=== PATIENT | female | born 1970 | race Caucasian/White ===

== ENCOUNTER 2017-10-16 16:44 | Emergency (ER) | payer BC ==
[2017-10-16] MEDS: HYDROCODONE/APAP (5/325) TAB PO (18:25)
== END 2017-10-16 19:56 | disposition home or self-care (01) ==
LOC: FTE 16:44
DX: S80.212A Abrasion, left knee, initial encounter (principal); S99.922A Unspecified injury of left foot, initial encounter; W18.2XXA Fall in (into) shower or empty bathtub, initial encounter; Y92.9 Unspecified place or not applicable
CPT/HCPCS: 73562; 73590; 73610; 73630-LT; 81025; 99283-25